=== PATIENT | male | born 1990 | race Caucasian/White ===

== ENCOUNTER 2017-03-28 22:59 | Emergency (ER) | payer OTHER ==
--- NOTE | 2017-03-28 23:17 | PDOC ---
History of Present Illness - General Stated Complaint: TOOK MEDS AFTER NIGHT OF DRINKING Past History - Past Medical History Allergies/Adverse Reactions: Allergies Allergy/AdvReac Type Severity Reaction Status Date / Time No Known Allergies Allergy Verified 04/19/15 07:35 Home Medications: Ambulatory Orders Elviteg/Elisa/Emtric/Tenofo Dis [Stribild Tablet] 1 each PO DAILY 03/28/17 Multivitamin with Minerals [Icaps Plus] 1 each PO DAILY 03/28/17 Diabetes: No - Psycho/Social/Smoking Cessation Hx Anxiety: No Suicidal Ideation: No Smoking History: Never smoked Have you smoked in the past 12 months: No Number of Cigarettes Smoked Daily: 0 Hx Alcohol Use: Yes Drug/Substance Use Hx: No Substance Use Type: None Hx Substance Use Treatment: No Review of Systems - Review of Systems Constitutional: Yes: Loss of Appetite, Malaise, Weakness. No: Symptoms Reported , See HPI, Chills, Diaphoresis, Fever, Night Sweats, Weight Stable, Unintentional Wgt. Loss, Unexplained wgt Loss, Other HEENTM: No: Symptoms Reported, See HPI, Eye Pain, Blurred Vision, Tearing, Recent change in vision, Double Vision, Cataracts, Ear Pain, Ocular Prothesis, Ear Discharge, Nose Pain, Nose Congestion, Tinnitus, Nose Bleeding, Hearing Loss , Throat Pain, Throat Swelling, Mouth Pain, Dental Problems, Difficulty Swallowing, Mouth Swelling, Other Respiratory: No: Symptoms reported, See HPI, Cough, Orthopnea, Shortness of Breath, SOB with Exertion, SOB at Rest, Stridor, Wheezing, Productive cough, Hemoptysis, Other Cardiac (ROS): Yes: Lightheadedness. No: Symptoms Reported, See HPI, Chest Pain , Edema, Irregular Heart Rate, Palpitations, Syncope, Chest Tightness, Other ABD/GI: No: Symptoms Reported, See HPI, Abdominal Distended, Abd. Pain w/ defecation, Blood Streaked Bowels, Constipated, Diarrhea, Difficulty Swallowing , Nausea, Poor Appetite, Poor Fluid Intake, Rectal Bleeding, Vomiting, Indigestion, Abdominal cramping, Tarry Stools, Other : Yes: Other (decreased urination due to dehydration) Musculoskeletal: No: Symptoms Reported, See HPI, Back Pain, Gout, Joint Pain, Joint Swelling, Muscle Pain, Muscle Weakness, Neck Pain, Joint Stiffness, Other Integumentary: No: Symptoms Reported, See HPI, Bruising, Change in Color, Change in Hair/Nails, Dryness, Erythema, Flushing, Lesions, Lumps, Pallor, Pruritus, Rash, Sweating, Other Neurological: Yes: Weakness, Dizziness. No: Symptoms reported, See HPI, Headache, Numbness, Paresthesia, Pre-Existing Deficit, Seizure, Tingling, Tremors, Unsteady Gait, Ataxia, Other Psychiatric: No: Anxiety, Depression, Frequent Crying, Stressors, Sleep Pattern Change, Emotional Problems, Mood Swings, Change in Appetite, Other Endocrine: No: Symptoms Reported, See HPI, Excessive Sweating, Flushing, Intolerance to Cold, Intolerance to Heat, Increased Hunger, Increased Thirst, Increased Urine, Unexplained Weight Gain, Unexplained Weight Loss, Change in Weight, Other Hematologic/Lymphatic: No: Symptoms Reported, See HPI, Anemia, Blood Clots, Easy Bleeding, Easy Bruising (Pt has HIV+ and is on HIV meds.), Bleeding Diathesis, Lymph Node Abnormalities, Swollen Glands, Other ED Treatment Course - LABORATORY CBC & Chemistry Diagram: 03/29/17 00:05 03/29/17 00:05 Medical Decision Making - Medical Decision Making 03/29/17 00:14 Pt comes with vomiting and nausea. Dehydration. No urine output. He waas drinking alcohol last night (he usually doesn't drink etoh) now with etoh poisoning. He vomited this 3 AM after drinking. Rested and then had soup and kept it down. Tonight he ate [place] food and vomited more. He comes now with weakness and dehydration. He thinks the combo of alcohol and his HIV meds are making him ill. Pt will be hydrated and given pepcid and reglan and we will check basic labs. 03/29/17 02:04 Lans normal. Pt aware that his Tbili is slightly elevated and he will follow that with his PMD. Feeling vastly improved with IV meds. He will follow with PMD as needed No mixing etoh and HIV meds. *DC/Admit/Observation/Transfer Diagnosis at time of Disposition: Dehydration, Alcohol poisoning - Discharge Dispostion Disposition: HOME Condition at time of disposition: Improved Admit: No - Patient Instructions Printed Discharge Instructions: DI for Vomiting -- Adult, DI for Dehydration - - Adult - Post Discharge Activity Work/School Note: Back to Work
[2017-03-28 23:28] VITALS: TEMP 97.8
[2017-03-28 23:39] VITALS: BP 133/83; PULSE 80; BMI 20.3
[2017-03-29] MEDS ORDERED: FAMOTIDINE 20 MG/50 ML IVPB 50 ML IVPB ONE ×2 (00:03→00:13)
[2017-03-29] MEDS ORDERED: SODIUM CHLORIDE 0.9% 1000 ML INFUS.BAG IV ONE (00:03)
[2017-03-29] MEDS ORDERED: METOCLOPRAMIDE HCL INJECTION 10 MG/2 ML VIAL IVPB ONE (00:13)
[2017-03-29 00:49] LABS: BASOPHIL 0.2 % (0-2.0); EOSINOPHIL 0.2 % (0-4.5); MCH 30.6 pg (25.7-33.7); MEAN CELL VOLUME 90.2 fl (80-96); MEAN PLT VOLUME 9.9 fl (7.5-11.1); NEUTROPHILS 82.2 % (42.8-82.8); PLATELET COUNT 174 K/MM3 (134-434); RDW 13.7 % (11.9-15.9)
[2017-03-29 01:15] LABS: ALBUMIN 4.7 g/dl (3.4-5.0); ALK PHOS 63 U/L (45-117); AMYLASE 52 U/L (25-115); ANION GAP 10 (8-16); BILIRUBIN,TOTAL 1.3 mg/dL (0.2-1.0); CALCIUM 9.4 mg/dL (8.5-10.1); CO2 27 mmol/L (21-32); CREATININE 0.9 mg/dL (0.7-1.3); GLUCOSE,RANDOM 99 mg/dL (74-106); SGOT/AST 20 U/L (15-37); SGPT/ALT 30 U/L (12-78); TOT PROT 7.8 g/dl (6.4-8.2)
== END 2017-03-29 01:38 | disposition home or self-care (01) ==
LOC: FER 22:59
PROC: 3E033GC Introduction of Other Therapeutic Substance into Peripheral Vein, Percutaneous Approach (ICD-10-PCS; principal; 2017-03-28)
PROC: 3E0337Z Introduction of Electrolytic and Water Balance Substance into Peripheral Vein, Percutaneous Approach (ICD-10-PCS; 2017-03-28)
DX: T51.91XA Toxic effect of unspecified alcohol, accidental (unintentional), initial encounter (principal); Y92.9 Unspecified place or not applicable; E86.0 Dehydration; Y93.9 Activity, unspecified
CPT/HCPCS: 36415; 80053; 82150; 83690; 85025; 99282-25